=== PATIENT | male | born 1960 | race Caucasian/White ===

== ENCOUNTER → 2023-04-03 | Outpatient (REF) | payer BC | LOC: M LAB REF 15:10 | PROVIDERS: ATTEND Podiatrist | DX: L03.032 Cellulitis of left toe (principal) ==

== ENCOUNTER 2023-07-21 12:30 | Day surgery (SDC) | payer BC ==
[~2023-07-21] VITALS: Ht 180.3 cm; Wt 100.2 kg
[~2023-07-21 12:30] MED LIST: ATEN50TA2 PO; ECOT81TA5 PO; ELIQ5TAB PO; FOLI1TAB11 PO; GLIM1TAB4 PO; GLIP10TA18 PO; LEXA1TAB2 PO; LISI10TA24 PO; METH2.5T48 PO; REPA420I2; SEMA0.257 SQ; VITA100093 PO
[2023-07-21] MEDS ORDERED: ceFAZolin SOD 2 GM in IV 1 EA IV ONE (13:20)
[2023-07-21] MEDS ORDERED: LR 1,000 ML IV SCH (13:20)
[2023-07-21] MEDS ORDERED: LIDOCAINE 2% 100MG/5ML SDV (FOR ANES.) As Ordered ONE (14:28)
[2023-07-21] MEDS ORDERED: KETOROLAC 60MG 2ML VIAL As Ordered ONE (14:28)
[2023-07-21] MEDS ORDERED: propofoL 200 MG/20 ML VIAL As Ordered ONE (14:28)
[2023-07-21] MEDS ORDERED: fentaNYL 100 MCG/2 ML INJECTION As Ordered ONE (14:29)
[2023-07-21] MEDS ORDERED: MIDAZOLAM INJ 2MG/2ML VIAL As Ordered ONE (14:29)
[2023-07-21] MEDS ORDERED: dexmedeTOMIDine (4MCG/ML)200MCG/50ML BTL (PRECEDEX) As Ordered ONE ×3 (15:06→15:13)
[2023-07-21] MEDS ORDERED: ROPIvacaine 0.5% 30ML VIAL As Ordered ONE (15:11)
[2023-07-21] MEDS ORDERED: GENTAMICIN SULF 80MG/2ML VIAL As Ordered ONE (15:20)
[2023-07-21 16:20] VITALS: BP 128/70; TEMP 97.7; O2SAT 98
== END 2023-07-21 16:36 | disposition home or self-care (01) ==
LOC: M SDC 12:30
PROVIDERS: ATTEND Podiatrist
DX: S93.124A Dislocation of metatarsophalangeal joint of right lesser toe(s), initial encounter (principal); I25.10 Atherosclerotic heart disease of native coronary artery without angina pectoris; I10 Essential (primary) hypertension; I25.2 Old myocardial infarction; E78.00 Pure hypercholesterolemia, unspecified; G47.33 Obstructive sleep apnea (adult) (pediatric); Z79.899 Other long term (current) drug therapy; F17.290 Nicotine dependence, other tobacco product, uncomplicated; Z79.84 Long term (current) use of oral hypoglycemic drugs; Z79.82 Long term (current) use of aspirin; Z95.5 Presence of coronary angioplasty implant and graft
CPT/HCPCS: 28820; 73630; 76000; 87070; 87075; 87077; 87186; 87205; 88300; J0690; J1580; J1885; J2250; J2795; J3010

== ENCOUNTER → 2023-12-27 | Outpatient (REF) | payer MEDICARE, BC | LOC: M LAB REF 16:26 | PROVIDERS: ATTEND Podiatrist | DX: L03.122 Acute lymphangitis of left axilla (principal) ==

== ENCOUNTER → 2024-01-22 | Outpatient (REF) | payer MEDICARE, BC | LOC: M LAB REF 16:15 | PROVIDERS: ATTEND Podiatrist | DX: E11.621 Type 2 diabetes mellitus with foot ulcer (principal); L97.529 Non-pressure chronic ulcer of other part of left foot with unspecified severity ==

== ENCOUNTER → 2024-03-19 | Outpatient (REF) | payer MEDICARE, BC ==
[~2024-03-19] MED LIST changes: -GLIM1TAB4 PO; +GLIM1TAB84 PO
== END ==
LOC: M LAB REF 19:37
PROVIDERS: ATTEND Podiatrist
DX: L03.032 Cellulitis of left toe (principal)

== ENCOUNTER 2024-06-19 14:55 | Day surgery (SDC) | payer MEDICARE, BC ==
[~2024-06-19] VITALS: Ht 177.8 cm; Wt 94.3 kg
[~2024-06-19 14:55] MED LIST changes: +BUPR-71 PO; +MINO100C4 PO
[2024-06-19] MEDS ORDERED: LR 1,000 ML IV SCH (15:40)
[2024-06-19] MEDS ORDERED: MIDAZOLAM INJ 2MG/2ML VIAL As Ordered ONE (16:23)
[2024-06-19] MEDS ORDERED: fentaNYL 100 MCG/2 ML INJECTION As Ordered ONE (16:24)
[2024-06-19] MEDS ORDERED: propofoL 200 MG/20 ML VIAL As Ordered ONE (16:26)
[2024-06-19] MEDS ORDERED: propofoL 500 MG/50 ML VIAL As Ordered ONE (16:27)
[2024-06-19] MEDS ORDERED: LIDOCAINE 2% 100MG/5ML SDV (FOR ANES.) As Ordered ONE (16:30)
[2024-06-19] MEDS ORDERED: ACETAMINOPHEN 1000MG 100ML IV BAG As Ordered ONE (16:35)
[2024-06-19] MEDS: ceFAZolin SOD 2 GM in IV 1 EA IV ONE (17:12)
[2024-06-19] MEDS: LIDOCAINE 2% MDV 20ML VIAL As Ordered ONE (17:19)
[2024-06-19] MEDS ORDERED: PHENYLephrine 500MCG 5ML (100MCG/ML) SYRINGE As Ordered ONE (17:23)
[2024-06-19] MEDS: TOBRAMYCIN SULF 1.2GM VIAL As Ordered ONE (17:40)
[2024-06-19] MEDS: GENTAMICIN SULF 80MG/2ML VIAL As Ordered ONE (18:00)
[2024-06-19 18:52] VITALS: BP 104/59; TEMP 96.8; O2SAT 99
== END 2024-06-19 18:59 | disposition home or self-care (01) ==
LOC: M SDC 14:55
PROVIDERS: ATTEND Podiatrist
DX: E11.621 Type 2 diabetes mellitus with foot ulcer (principal); E11.69 Type 2 diabetes mellitus with other specified complication; M86.9 Osteomyelitis, unspecified; L97.429 Non-pressure chronic ulcer of left heel and midfoot with unspecified severity; I10 Essential (primary) hypertension; E11.40 Type 2 diabetes mellitus with diabetic neuropathy, unspecified; E11.51 Type 2 diabetes mellitus with diabetic peripheral angiopathy without gangrene; E78.00 Pure hypercholesterolemia, unspecified; G47.30 Sleep apnea, unspecified; M06.9 Rheumatoid arthritis, unspecified; Z86.718 Personal history of other venous thrombosis and embolism; F17.290 Nicotine dependence, other tobacco product, uncomplicated; Z79.01 Long term (current) use of anticoagulants; Z79.899 Other long term (current) drug therapy; Z79.82 Long term (current) use of aspirin; Z79.84 Long term (current) use of oral hypoglycemic drugs; Z79.85 Long-term (current) use of injectable non-insulin antidiabetic drugs; K21.9 Gastro-esophageal reflux disease without esophagitis; Z88.8 Allergy status to other drugs, medicaments and biological substances; Z91.030 Bee allergy status; Z95.5 Presence of coronary angioplasty implant and graft
CPT/HCPCS: 11981; 28292; 73630; 87070; 87075; 87077; 87186; 87205; C1713; J0131; J0665; J0690; J1580; J2250; J2371; J3010; J3260

== ENCOUNTER → 2024-07-31 | Outpatient (REF) | payer MEDICARE, BC | LOC: M LAB REF 16:32 | PROVIDERS: ATTEND Podiatrist | DX: L03.129 Acute lymphangitis of unspecified part of limb (principal) ==

== ENCOUNTER 2024-08-12 10:07 | Inpatient (IN) | payer MEDICARE, BC ==
[~2024-08-12] VITALS: Ht 180.3 cm; Wt 90.2 kg
[2024-08-12] MEDS ORDERED: REPA140I2 SC (11:13)
[2024-08-12] MEDS ORDERED: VITA100018 PO (11:13)
[2024-08-12] MEDS ORDERED: VITA200016 PO (11:13)
[2024-08-12] MEDS ORDERED: PROBCAP14 PO (11:13)
[2024-08-12] MEDS ORDERED: LEXA1TAB PO (11:13)
[2024-08-12] MEDS ORDERED: CEPH500C PO (11:13)
[2024-08-12] MEDS ORDERED: HYDR-3363 PO (11:13)
[2024-08-12] MEDS ORDERED: HOME MED LIST COMPLETE! XX SCH (11:15)
[2024-08-12 11:18] LABS: BASO # 0.1 10^3/uL (0.0-0.2); BASO % 0.3 % (0.0-1.0); EOS # 0.2 10^3/uL (0.0-0.5); EOS % 1.2 % (0.0-3.0); HEMATOCRIT 33.5 % (42.0-52.0); HEMOGLOBIN 11.6 g/dl (13.5-17.5); LYMPH # 1.4 10^3/uL (1.5-5.0); LYMPH % 8.8 % (24.0-44.0); MEAN CORPUSCULAR HEMOGLOBIN 30.6 pg (27.0-33.0); MEAN CORPUSCULAR HGB CONC 34.6 g/dl (32.0-36.5); MEAN CORPUSCULAR VOLUME 88.4 fl (80.0-96.0); MONO # 1.4 10^3/uL (0.0-0.8); NEUTROPHILS # 12.3 10^3/uL (1.5-8.5); NEUTROPHILS % 79.7 % (36.0-66.0); PLATELET COUNT, AUTOMATED 478 10^3/uL (150-450); RED BLOOD COUNT 3.79 10^6/uL (4.30-6.10); WHITE BLOOD COUNT 15.4 10^3/uL (4.0-10.0)
[2024-08-12] MEDS: MORPHINE 4 MG/ML 1ML VIAL IV PRN (11:30)
[2024-08-12 11:40] LABS: ERYTHROCYTE SEDIMENTATION RATE 115 mm/hr (0-20)
[2024-08-12 13:06] LABS: ALBUMIN 2.4 G/DL (3.2-5.2); ALKALINE PHOSPHATASE 150 U/L (40-129); ALT/SGPT 50 U/L (7.0-40); AST/SGOT 25 U/L (<34); BILIRUBIN,DIRECT 0.2 MG/DL (<0.4); BILIRUBIN,TOTAL 0.4 MG/DL (0.3-1.2); BLOOD UREA NITROGEN 25 MG/DL (9-23); CALCIUM LEVEL 9.3 MG/DL (8.3-10.6); CARBON DIOXIDE LEVEL 22 MMOL/L (20-31); CHLORIDE LEVEL 101 MMOL/L (98-107); CREATININE FOR GFR 0.87 MG/DL (0.70-1.30); GLOMERULAR FILTRATION RATE > 60.0 (>49); GLUCOSE, FASTING 161 MG/DL (74-106); POTASSIUM SERUM 4.8 MMOL/L (3.5-5.1); PROCALCITONIN 0.15 ng/ml; SODIUM LEVEL 128 MMOL/L (136-145); TOTAL PROTEIN 7.3 G/DL (5.7-8.2)
[2024-08-12] MEDS ORDERED: DEXTROSE 50% 50ML SYRINGE IV PRN (13:55)
[2024-08-12] MEDS ORDERED: GLUCOSE 4 GM CHEW PO PRN (13:55)
[2024-08-12] MEDS ORDERED: GLUCAGON INJ 1MG VIAL SC PRN (13:55)
[2024-08-12] MEDS ORDERED: VANCOMYCIN/WATER FOR INJ 1,000 MG in IV 1 EA IV SCH (14:10)
[2024-08-12] MEDS ORDERED: PIPERACILLIN/TAZOBACTAM SOD 4.5 GM in DEXTROSE 5% (D5W) ADV/MINI-BAG 50 ML IV SCH (14:15)
[2024-08-12] MEDS: NS 1,000 ML IV ONE (14:49)
[2024-08-12 15:06] VITALS: BP 135/74; TEMP 99.5; O2SAT 99
[2024-08-12] MEDS: ACETAMINOPHEN 650MG SUPP PR ONE (15:36)
[2024-08-12] MEDS: PIPERACILLIN/TAZOBACTAM SOD 4.5 GM in DEXTROSE 5% (D5W) ADV/MINI-BAG 50 ML IV SCH (16:02)
[2024-08-12] MEDS ORDERED: LIDOCAINE 2% 100MG/5ML SDV (FOR ANES.) As Ordered ONE (16:32)
[2024-08-12] MEDS ORDERED: KETOROLAC 60MG 2ML VIAL As Ordered ONE (16:32)
[2024-08-12] MEDS ORDERED: propofoL 200 MG/20 ML VIAL As Ordered ONE (16:32)
[2024-08-12] MEDS ORDERED: ONDANSETRON 4MG 2ML VIAL As Ordered ONE (16:32)
[2024-08-12] MEDS ORDERED: INSULIN LISPRO (NovoLOG) PER UNIT SC SCH ×2 (17:30→21:00)
[2024-08-12] MEDS ORDERED: fentaNYL 100 MCG/2 ML INJECTION As Ordered ONE (18:00)
[2024-08-12] MEDS ORDERED: MIDAZOLAM INJ 2MG/2ML VIAL As Ordered ONE (18:00)
[2024-08-12] MEDS: LIDOCAINE 2% MDV 20ML VIAL As Ordered ONE (18:39)
[2024-08-12] MEDS: VANCOMYCIN 500MG/10ML VIAL As Ordered ONE (19:07)
[2024-08-12] MEDS: VANCOMYCIN 1000MG/20ML VIAL As Ordered ONE (19:07)
[2024-08-12] MEDS ORDERED: fentaNYL 100 MCG/2 ML INJECTION IV PRN (19:45)
[2024-08-12] MEDS ORDERED: ONDANSETRON 4MG 2ML VIAL IV PRN (19:45)
[2024-08-12] MEDS ORDERED: oxyCODONE 5MG TAB PO PRN (19:45)
[2024-08-12] MEDS: LR 1,000 ML IV SCH (19:45)
[2024-08-12] MEDS ORDERED: HYDROMORPHONE HCL 0.5 MG/ 0.5 ML SYRINGE IV PRN (19:45)
[2024-08-12 20:22] VITALS: BP 104/63; TEMP 96; O2SAT 97
[2024-08-12] MEDS: VANCOMYCIN 2,000 MG/400 ML IV BAG *LOAD IV ONE ×2 (20:50→21:07)
[2024-08-12 20:52] VITALS: BP 100/56; TEMP 97; O2SAT 94
[2024-08-12] MEDS: D5W/0.45% SODIUM CHLORIDE 1,000 ML IV SCH (21:02)
[2024-08-12 21:22] VITALS: BP 95/54; TEMP 96.9; O2SAT 93
[2024-08-12 22:22] VITALS: BP 110/68; TEMP 97.1; O2SAT 96
[2024-08-12 23:22] VITALS: BP 109/68; TEMP 96.9; O2SAT 91
[2024-08-13] VITALS (8 sets, daily range): BP systolic 103–136; BP diastolic 57–73; TEMP 96.8–100.5; O2SAT 92–97
[2024-08-13 06:43] LABS: VANCOMYCIN LEVEL TROUGH 20.6 UG/ML (10.0-20.0)
[2024-08-13] MEDS ORDERED: VANCOMYCIN 1,250 MG/250 ML IV BAG IV SCH (08:00)
[2024-08-13 08:42] LABS: CALCIUM LEVEL 8.5 MG/DL (8.3-10.6); CREATININE FOR GFR 1.37 MG/DL (0.70-1.30); GLOMERULAR FILTRATION RATE 56.2 (>49); POTASSIUM SERUM 4.7 MMOL/L (3.5-5.1)
[2024-08-13] MEDS: VANCOMYCIN 750MG/150 ML IV BAG IV SCH (10:00)
[2024-08-13] MEDS: ONDANSETRON 4MG 2ML VIAL IV PRN (11:22)
[2024-08-13] MEDS: NS 1,000 ML IV ONE (11:23)
[2024-08-13] MEDS ORDERED: MORPHINE 2 MG/ML 1ML VIAL IV PRN (12:45)
[2024-08-13] MEDS: ACETAMINOPHEN 325 MG TAB PO PRN (13:10)
[2024-08-13] MEDS: KETOROLAC 30 MG/ML 1ML VIAL IV SCH (15:33)
[2024-08-13] MEDS: buPROPion **SR TABLET** (ZYBAN) 150MG PO SCH (21:12)
[2024-08-13] MEDS: APIXABAN 5 MG TAB (ELIQUIS) PO SCH (21:14)
[2024-08-13] MEDS: ESCITALOPRAM OXALATE 10 MG TAB (LEXAPRO) PO SCH (21:14)
[2024-08-14] VITALS (7 sets, daily range): BP systolic 126–145; BP diastolic 63–75; TEMP 97.5–99.7; O2SAT 95–98
[2024-08-14] MEDS: PROMETHAZINE 25 MG TAB PO ONE (01:17)
[2024-08-14 01:50] LABS: BLOOD UREA NITROGEN 22 MG/DL (9-23); CALCIUM LEVEL 8.3 MG/DL (8.3-10.6); CARBON DIOXIDE LEVEL 21 MMOL/L (20-31); CHLORIDE LEVEL 105 MMOL/L (98-107); CREATININE FOR GFR 1.14 MG/DL (0.70-1.30); GLOMERULAR FILTRATION RATE > 60.0 (>49); GLUCOSE, FASTING 233 MG/DL (74-106); MAGNESIUM LEVEL 1.3 MG/DL (1.8-2.4); POTASSIUM SERUM 4.2 MMOL/L (3.5-5.1); SODIUM LEVEL 132 MMOL/L (136-145)
[2024-08-14] MEDS: MAG SULF 1GM/100ML (MAG RUN) 1 GM in IV 1 EA IV SCH (03:37)
[2024-08-14] MEDS: atenoloL 50 MG TAB PO SCH (09:53)
[2024-08-14] MEDS: INSULIN LISPRO (NovoLOG) PER UNIT SC SCH ×2 (10:00→20:43)
[2024-08-14 10:16] LABS: BASO % 0.2 % (0.0-1.0); EOS # 0.1 10^3/uL (0.0-0.5); EOS % 0.7 % (0.0-3.0); HEMATOCRIT 30.4 % (42.0-52.0); HEMOGLOBIN 10.4 g/dl (13.5-17.5); LYMPH # 1.1 10^3/uL (1.5-5.0); LYMPH % 8.6 % (24.0-44.0); MEAN CORPUSCULAR HEMOGLOBIN 29.6 pg (27.0-33.0); MEAN CORPUSCULAR HGB CONC 34.2 g/dl (32.0-36.5); MEAN CORPUSCULAR VOLUME 86.6 fl (80.0-96.0); MONO % 7.6 % (2.0-8.0); NEUTROPHILS # 10.8 10^3/uL (1.5-8.5); NEUTROPHILS % 82.1 % (36.0-66.0); PLATELET COUNT, AUTOMATED 396 10^3/uL (150-450); RED BLOOD COUNT 3.51 10^6/uL (4.30-6.10); WHITE BLOOD COUNT 13.1 10^3/uL (4.0-10.0)
[2024-08-14] MEDS: PROMETHAZINE 25MG/ML 1ML VIAL IV ONE (12:00)
[2024-08-14] MEDS: PERCOCET 5MG/325MG TAB PO PRN (12:59)
[2024-08-15 04:20] VITALS: BP 134/72; TEMP 98.8; O2SAT 97
[2024-08-15] MEDS: MORPHINE 2 MG/ML 1ML VIAL IV PRN (06:11)
[2024-08-15 06:24] LABS: BASO % 0.3 % (0.0-1.0); EOS # 0.1 10^3/uL (0.0-0.5); EOS % 1.2 % (0.0-3.0); HEMATOCRIT 30.3 % (42.0-52.0); HEMOGLOBIN 10.2 g/dl (13.5-17.5); LYMPH # 1.2 10^3/uL (1.5-5.0); LYMPH % 10.7 % (24.0-44.0); MEAN CORPUSCULAR HEMOGLOBIN 29.4 pg (27.0-33.0); MEAN CORPUSCULAR HGB CONC 33.7 g/dl (32.0-36.5); MEAN CORPUSCULAR VOLUME 87.3 fl (80.0-96.0); MONO % 8.9 % (2.0-8.0); NEUTROPHILS % 78.2 % (36.0-66.0); PLATELET COUNT, AUTOMATED 392 10^3/uL (150-450); RED BLOOD COUNT 3.47 10^6/uL (4.30-6.10); WHITE BLOOD COUNT 11.5 10^3/uL (4.0-10.0)
[2024-08-15 06:50] LABS: BLOOD UREA NITROGEN 11 MG/DL (9-23); CALCIUM LEVEL 8.9 MG/DL (8.3-10.6); CARBON DIOXIDE LEVEL 23 MMOL/L (20-31); CHLORIDE LEVEL 102 MMOL/L (98-107); CREATININE FOR GFR 0.85 MG/DL (0.70-1.30); GLOMERULAR FILTRATION RATE > 60.0 (>49); GLUCOSE, FASTING 176 MG/DL (74-106); MAGNESIUM LEVEL 1.4 MG/DL (1.8-2.4); POTASSIUM SERUM 4.7 MMOL/L (3.5-5.1); SODIUM LEVEL 131 MMOL/L (136-145)
[2024-08-15] MEDS: MAG SULF 1GM/100ML (MAG RUN) 1 GM in IV 1 EA IV SCH (11:42)
[2024-08-15] MEDS: MAGNESIUM OXIDE 400MG TAB (MAG-OX) PO SCH (11:48)
[2024-08-15 12:00] VITALS: BP 137/60; TEMP 97.7; O2SAT 96
[2024-08-15] MEDS ORDERED: LINE1TAB6 PO (16:50)
[2024-08-15] MEDS: LINEZOLID 600MG TABLET (ZYVOX) PO SCH (20:01)
[2024-08-15 21:00] VITALS: BP 142/77; TEMP 98.1; O2SAT 94
[2024-08-16] MEDS: PERCOCET 5MG/325MG TAB PO PRN (01:32)
[2024-08-16 04:40] VITALS: BP 137/75; TEMP 97.5; O2SAT 97
[2024-08-16 05:52] LABS: BLOOD UREA NITROGEN 10 MG/DL (9-23); CALCIUM LEVEL 8.8 MG/DL (8.3-10.6); CARBON DIOXIDE LEVEL 22 MMOL/L (20-31); CHLORIDE LEVEL 104 MMOL/L (98-107); CREATININE FOR GFR 0.81 MG/DL (0.70-1.30); GLOMERULAR FILTRATION RATE > 60.0 (>49); GLUCOSE, FASTING 173 MG/DL (74-106); MAGNESIUM LEVEL 1.4 MG/DL (1.8-2.4); POTASSIUM SERUM 4.9 MMOL/L (3.5-5.1); SODIUM LEVEL 132 MMOL/L (136-145)
[2024-08-16] MEDS: MAG SULF 1GM/100ML (MAG RUN) 1 GM in IV 1 EA IV SCH (06:45)
[2024-08-16 08:00] VITALS: BP 134/72; TEMP 97
[2024-08-16] MEDS: MAGNESIUM OXIDE 400MG TAB (MAG-OX) PO SCH (10:28)
[2024-08-16] MEDS ORDERED: MAGN400T2 PO (10:32)
[2024-08-16] MEDS ORDERED: PERCOCET PO (10:32)
[2024-08-16 10:45] VITALS: BP 160/88
[2024-08-16 11:30] VITALS: BP 156/78; TEMP 99
[2024-08-16 12:51] VITALS: O2SAT 96
== END 2024-08-16 16:20 | disposition home health service (06) | DRG 617 ==
LOC: M ED 10:07 → M ED INP 13:49 → EEVIPCON 13:49 → M MSPAV 15:08
PROVIDERS: ADMIT General Practice; ATTEND Student in an Organized Health Care Education/Training Program
PROC: 0Y6N0Z5 Detachment at Left Foot, Complete 2nd Ray, Open Approach (ICD-10-PCS; principal; 2024-08-12 17:00)
DX: E11.69 Type 2 diabetes mellitus with other specified complication (principal); E11.52 Type 2 diabetes mellitus with diabetic peripheral angiopathy with gangrene; M86.672 Other chronic osteomyelitis, left ankle and foot; E87.1 Hypo-osmolality and hyponatremia; I10 Essential (primary) hypertension; E78.00 Pure hypercholesterolemia, unspecified; E78.5 Hyperlipidemia, unspecified; I25.10 Atherosclerotic heart disease of native coronary artery without angina pectoris; N17.9 Acute kidney failure, unspecified; E11.40 Type 2 diabetes mellitus with diabetic neuropathy, unspecified; E11.51 Type 2 diabetes mellitus with diabetic peripheral angiopathy without gangrene; I70.201 Unspecified atherosclerosis of native arteries of extremities, right leg; F17.210 Nicotine dependence, cigarettes, uncomplicated

== ENCOUNTER → 2024-09-03 | Outpatient (REF) | payer MEDICARE, BC ==
[~2024-09-03] MED LIST changes: +CEPH500C PO; +HYDR-3363 PO; +LEXA1TAB PO; +LINE1TAB6 PO; +MAGN400T2 PO; +PERCOCET PO; +PROBCAP14 PO; +REPA140I2 SC; +VITA100018 PO; +VITA200016 PO
== END ==
LOC: M LAB REF 10:41
PROVIDERS: ATTEND Podiatrist
DX: M86.9 Osteomyelitis, unspecified (principal)

== ENCOUNTER → 2024-09-11 | Outpatient (POV) | payer MEDICARE, BC ==
[~2024-09-11] VITALS: Ht 177.8 cm; Wt 90.9 kg
[2024-09-11 16:05] VITALS: BP 102/57; O2SAT 100
== END ==
LOC: M IRPOV 15:33
PROVIDERS: ATTEND Radiology Diagnostic Radiology
DX: I70.223 Atherosclerosis of native arteries of extremities with rest pain, bilateral legs (principal); M86.8X7 Other osteomyelitis, ankle and foot; B95.2 Enterococcus as the cause of diseases classified elsewhere; B95.61 Methicillin susceptible Staphylococcus aureus infection as the cause of diseases classified elsewhere; B95.62 Methicillin resistant Staphylococcus aureus infection as the cause of diseases classified elsewhere; F17.290 Nicotine dependence, other tobacco product, uncomplicated; G25.81 Restless legs syndrome; Z79.01 Long term (current) use of anticoagulants; Z79.82 Long term (current) use of aspirin; Z82.3 Family history of stroke; Z82.49 Family history of ischemic heart disease and other diseases of the circulatory system; Z83.3 Family history of diabetes mellitus; Z86.718 Personal history of other venous thrombosis and embolism; Z89.422 Acquired absence of other left toe(s); Z96.652 Presence of left artificial knee joint; Z98.1 Arthrodesis status

== ENCOUNTER → 2024-10-14 | Outpatient (REF) | payer MEDICARE, BC | LOC: M LAB REF 16:16 | PROVIDERS: ATTEND Podiatrist | DX: L03.129 Acute lymphangitis of unspecified part of limb (principal) ==

== ENCOUNTER → 2024-10-31 | Outpatient (CLI) | payer MEDICARE, BC ==
[~2024-10-31] MED LIST changes: +ACETAMINOPHEN 325 MG TAB PO PRN; +HEPARIN 1,000UNITS/ML 10ML VIAL (FOR RADIOLOGY & DIALYSIS ONLY) As Ordered ONE; +ISOVUE-300 61% 100ML VIAL As Ordered ONE; +KETAMINE HCL 200MG/20ML VIAL As Ordered ONE; +LIDOCAINE 1% MDV 20ML VIAL As Ordered ONE; +LIDOCAINE 2% 100MG/5ML SDV (FOR ANES.) As Ordered ONE; +MIDAZOLAM INJ 2MG/2ML VIAL As Ordered ONE; +NS (Normal Saline) 0.9% 1,000 ML IV SCH; +ONDANSETRON 4MG 2ML VIAL IV PRN; +PERCOCET 5MG/325MG TAB As Ordered ONE; +fentaNYL 100 MCG/2 ML INJECTION As Ordered ONE; +fentaNYL 100 MCG/2 ML INJECTION IV PRN; +propofoL 200 MG/20 ML VIAL As Ordered ONE
[2024-10-31 10:58] VITALS: TEMP 99.2
[2024-10-31] MEDS: PERCOCET 5MG/325MG TAB PO PRN (15:11)
[2024-10-31 16:00] VITALS: BP 165/84; O2SAT 97
== END ==
LOC: M IRPRO 10:03
PROVIDERS: ATTEND Radiology Diagnostic Radiology
DX: I70.202 Unspecified atherosclerosis of native arteries of extremities, left leg (principal)
CPT/HCPCS: 37227; C1714; C1760; C1874; C1894; J2250; J3010; Q9967

== ENCOUNTER → 2024-11-21 | Outpatient (CLI) | payer MEDICARE, BC ==
[~2024-11-21] MED LIST changes: -ACETAMINOPHEN 325 MG TAB PO PRN; +GLIP-320 PO; -GLIP10TA18 PO; -HEPARIN 1,000UNITS/ML 10ML VIAL (FOR RADIOLOGY & DIALYSIS ONLY) As Ordered ONE; -ISOVUE-300 61% 100ML VIAL As Ordered ONE; -KETAMINE HCL 200MG/20ML VIAL As Ordered ONE; -LIDOCAINE 1% MDV 20ML VIAL As Ordered ONE; -LIDOCAINE 2% 100MG/5ML SDV (FOR ANES.) As Ordered ONE; -MIDAZOLAM INJ 2MG/2ML VIAL As Ordered ONE; -NS (Normal Saline) 0.9% 1,000 ML IV SCH; -ONDANSETRON 4MG 2ML VIAL IV PRN; -PERCOCET 5MG/325MG TAB As Ordered ONE; -fentaNYL 100 MCG/2 ML INJECTION As Ordered ONE; -fentaNYL 100 MCG/2 ML INJECTION IV PRN; -propofoL 200 MG/20 ML VIAL As Ordered ONE
[2024-11-21 15:13] LABS: BASO % 0.3 % (0.0-1.0); EOS # 0.2 10^3/uL (0.0-0.5); EOS % 1.5 % (0.0-3.0); HEMATOCRIT 28.1 % (42.0-52.0); HEMOGLOBIN 8.9 g/dl (13.5-17.5); MEAN CORPUSCULAR HEMOGLOBIN 27.9 pg (27.0-33.0); MEAN CORPUSCULAR HGB CONC 31.7 g/dl (32.0-36.5); MEAN CORPUSCULAR VOLUME 88.1 fl (80.0-96.0); MONO # 0.9 10^3/uL (0.0-0.8); MONO % 9.5 % (2.0-8.0); NEUTROPHILS # 6.8 10^3/uL (1.5-8.5); NEUTROPHILS % 68.4 % (36.0-66.0); PLATELET COUNT, AUTOMATED 380 10^3/uL (150-450); RED BLOOD COUNT 3.19 10^6/uL (4.30-6.10); WHITE BLOOD COUNT 9.9 10^3/uL (4.0-10.0)
[2024-11-21 15:15] LABS: C REACTIVE PROTEIN QUANTITATIV 9.14 MG/DL (<1.0)
[2024-11-21 15:16] LABS: BLOOD UREA NITROGEN 15 MG/DL (9-23); CALCIUM LEVEL 8.6 MG/DL (8.3-10.6); CARBON DIOXIDE LEVEL 30 MMOL/L (20-31); CHLORIDE LEVEL 96 MMOL/L (98-107); CREATININE FOR GFR 0.97 MG/DL (0.70-1.30); GLOMERULAR FILTRATION RATE > 60.0 (>49); GLUCOSE, FASTING 295 MG/DL (74-106); POTASSIUM SERUM 4.1 MMOL/L (3.5-5.1); SODIUM LEVEL 131 MMOL/L (136-145)
[2024-11-21 15:18] LABS: ERYTHROCYTE SEDIMENTATION RATE 61 mm/hr (0-20)
== END ==
LOC: M PLALAB 13:01
PROVIDERS: ATTEND Internal Medicine Infectious Disease
DX: M86.172 Other acute osteomyelitis, left ankle and foot (principal)

== ENCOUNTER → 2024-12-13 | Outpatient (CLI) | payer MEDICARE, BC ==
[~2024-12-13] VITALS: Ht 177.8 cm; Wt 89.0 kg
[~2024-12-13] MED LIST changes: +ACETAMINOPHEN 325 MG TAB PO PRN; +HEPARIN SOD (PORCINE) 5000UNITS/ML 1ML VIAL/SYRINGE IV STA; +ISOVUE-300 61% 100ML VIAL As Ordered ONE; +KETAMINE HCL 200MG/20ML VIAL As Ordered ONE; +LIDOCAINE 2% 100MG/5ML SDV (FOR ANES.) As Ordered ONE; +MIDAZOLAM INJ 2MG/2ML VIAL As Ordered ONE; +NITROGLYCERIN IN D5W 25MG/250ML (100MCG/ML) As Ordered ONE; +NS (Normal Saline) 0.9% 1,000 ML IV SCH; +ONDANSETRON 4MG 2ML VIAL As Ordered ONE; +ONDANSETRON 4MG 2ML VIAL IV PRN; +PERCOCET 5MG/325MG TAB PO PRN; +fentaNYL 100 MCG/2 ML INJECTION As Ordered ONE; +propofoL 200 MG/20 ML VIAL As Ordered ONE
[2024-12-13 07:30] VITALS: TEMP 97.9
[2024-12-13] MEDS: NS (Normal Saline) 0.9% 1,000 ML IV SCH (07:40)
[2024-12-13 08:06] LABS: INR 1.07; PROTHROMBIN TIME 14.2 SECONDS (12.5-14.5)
[2024-12-13] MEDS: HEPARIN 1,000UNITS/ML 10ML VIAL (FOR RADIOLOGY & DIALYSIS ONLY) IV PRN (09:34)
[2024-12-13] MEDS: LIDOCAINE 1% MDV 20ML VIAL SC ONE (11:02)
[2024-12-13 12:45] VITALS: BP 162/80; O2SAT 97
== END ==
LOC: M IRPRO 07:22
PROVIDERS: ATTEND Radiology Diagnostic Radiology
DX: I74.3 Embolism and thrombosis of arteries of the lower extremities (principal)
CPT/HCPCS: 37224; 85610; C1725; C1760; C1769; C1887; C1894; C2623; J2250; J2405; J3010; Q9967

== ENCOUNTER → 2025-04-29 | Outpatient (CLI) | payer MEDICARE, BC ==
[~2025-04-29] MED LIST changes: -ACETAMINOPHEN 325 MG TAB PO PRN; -HEPARIN SOD (PORCINE) 5000UNITS/ML 1ML VIAL/SYRINGE IV STA; -ISOVUE-300 61% 100ML VIAL As Ordered ONE; -KETAMINE HCL 200MG/20ML VIAL As Ordered ONE; -LIDOCAINE 2% 100MG/5ML SDV (FOR ANES.) As Ordered ONE; -MIDAZOLAM INJ 2MG/2ML VIAL As Ordered ONE; -NITROGLYCERIN IN D5W 25MG/250ML (100MCG/ML) As Ordered ONE; -NS (Normal Saline) 0.9% 1,000 ML IV SCH; -ONDANSETRON 4MG 2ML VIAL As Ordered ONE; -ONDANSETRON 4MG 2ML VIAL IV PRN; -PERCOCET 5MG/325MG TAB PO PRN; -fentaNYL 100 MCG/2 ML INJECTION As Ordered ONE; -propofoL 200 MG/20 ML VIAL As Ordered ONE
== END ==
LOC: M RAD 10:57
PROVIDERS: ATTEND Radiology Diagnostic Radiology
DX: I74.3 Embolism and thrombosis of arteries of the lower extremities (principal)

== ENCOUNTER → 2025-05-07 | Outpatient (POV) | payer MEDICARE, BC ==
[~2025-05-07] VITALS: Ht 177.8 cm; Wt 97.7 kg
[~2025-05-07] MED LIST changes: +ESCI5SOL3 PO; +FURO20TA2 PO; +FURO40TA2 PO; +IRON65TA2 PO; +LOSA25TA13 PO; +LOSA50TA28 PO; +METO1TAB7 PO; +METO200T15 PO; +PANT20TA6 PO
[2025-05-07 09:46] VITALS: BP 150/92; O2SAT 99
== END ==
LOC: EDSTATUS 09:00 → M IRPOV 09:37
PROVIDERS: ATTEND Registered Nurse School
DX: Z48.812 Encounter for surgical aftercare following surgery on the circulatory system (principal); I70.201 Unspecified atherosclerosis of native arteries of extremities, right leg; Z88.8 Allergy status to other drugs, medicaments and biological substances; Z91.030 Bee allergy status

== ENCOUNTER → 2025-05-30 | Outpatient (CLI) | payer MEDICARE, BC ==
[~2025-05-30] VITALS: Ht 177.8 cm; Wt 97.5 kg
[~2025-05-30] MED LIST changes: +ACETAMINOPHEN 325 MG TAB PO PRN; +ASPIRIN 81 MG ENTERIC TABLET PO SCH; +CEPH25SS PO; +CLOP75TA2 PO; +KETAMINE HCL 200 MG/20 ML VIAL As Ordered ONE; +LIDOCAINE 2% 100 MG/5 ML SDV (FOR ANES.) As Ordered ONE; +MIDAZOLAM INJ 2 MG/2 ML VIAL As Ordered ONE; +MIDAZOLAM INJ 2 MG/2 ML VIAL IV PRN; +NS (Normal Saline) 0.9% 1,000 ML IV SCH; +ONDANSETRON 4MG 2ML VIAL IV PRN; +PERCOCET 5MG/325MG TAB PO PRN
[2025-05-30 12:20] VITALS: TEMP 97.4
[2025-05-30] MEDS: ceFAZolin SODIUM 2 GM in DEXTROSE 5% (D5W) ADV/MINI-BAG 50 ML IV ONE (13:43)
[2025-05-30] MEDS: HEPARIN 1,000 UNITS/ML 10 ML VIAL (FOR RADIOLOGY & DIALYSIS ONLY) IV PRN (13:48)
[2025-05-30] MEDS: CLOPIDOGREL 75 MG TAB PO ONE (15:40)
[2025-05-30] MEDS: LIDOCAINE 1% MDV 20 ML VIAL SC SCH (15:49)
[2025-05-30] MEDS: ISOVUE-300 61% 100 ML VIAL IV SCH (15:49)
[2025-05-30] MEDS: NS (Normal Saline) 0.9% 1,000 ML IV SCH (15:49)
[2025-05-30] MEDS: ASPIRIN 81 MG ENTERIC TABLET PO ONE (16:33)
[2025-05-30 17:30] VITALS: BP 174/84; O2SAT 98
== END ==
LOC: M IRPOV 12:15
PROVIDERS: ATTEND Radiology Diagnostic Radiology
DX: T82.898A Other specified complication of vascular prosthetic devices, implants and grafts, initial encounter (principal)
CPT/HCPCS: 37226; 93975; C1760; C1769; C1874; C1884; J0690; J2250; J3010; Q9967

== ENCOUNTER → 2025-07-03 | Outpatient (CLI) | payer MEDICARE, BC ==
[~2025-07-03] MED LIST changes: -ACETAMINOPHEN 325 MG TAB PO PRN; -ASPIRIN 81 MG ENTERIC TABLET PO SCH; +BUPR150T12 PO; -KETAMINE HCL 200 MG/20 ML VIAL As Ordered ONE; -LIDOCAINE 2% 100 MG/5 ML SDV (FOR ANES.) As Ordered ONE; -MIDAZOLAM INJ 2 MG/2 ML VIAL As Ordered ONE; -MIDAZOLAM INJ 2 MG/2 ML VIAL IV PRN; -NS (Normal Saline) 0.9% 1,000 ML IV SCH; -ONDANSETRON 4MG 2ML VIAL IV PRN; -PERCOCET 5MG/325MG TAB PO PRN
== END ==
LOC: M RAD 09:52
PROVIDERS: ATTEND Registered Nurse School
DX: I70.202 Unspecified atherosclerosis of native arteries of extremities, left leg (principal); Z95.820 Peripheral vascular angioplasty status with implants and grafts

== ENCOUNTER → 2025-07-09 | Outpatient (POV) | payer MEDICARE, BC ==
[~2025-07-09] VITALS: Ht 172.7 cm; Wt 97.7 kg
[2025-07-09 10:09] VITALS: BP 168/77; O2SAT 99
== END ==
LOC: M IRPOV 09:36
PROVIDERS: ATTEND Registered Nurse School
DX: Z48.812 Encounter for surgical aftercare following surgery on the circulatory system (principal); Z95.828 Presence of other vascular implants and grafts; I70.245 Atherosclerosis of native arteries of left leg with ulceration of other part of foot; L97.529 Non-pressure chronic ulcer of other part of left foot with unspecified severity; I70.234 Atherosclerosis of native arteries of right leg with ulceration of heel and midfoot; L97.519 Non-pressure chronic ulcer of other part of right foot with unspecified severity; Z79.02 Long term (current) use of antithrombotics/antiplatelets; Z79.82 Long term (current) use of aspirin; Z91.030 Bee allergy status; Z88.8 Allergy status to other drugs, medicaments and biological substances

== ENCOUNTER → 2025-09-08 | Outpatient (CLI) | payer MEDICARE, BC ==
[~2025-09-08] VITALS: Ht 177.8 cm; Wt 106.8 kg
[~2025-09-08] MED LIST changes: +ACETAMINOPHEN 325 MG TAB PO PRN; +DEXTROSE 50% 50 ML SYRINGE IV PRN; +GLUCAGON INJ 1 MG VIAL SC PRN; +GLUCOSE 4 GM CHEW PO PRN; +HEPARIN 1,000 UNITS/ML 10 ML VIAL (FOR RADIOLOGY & DIALYSIS ONLY) IV PRN; +INSULIN LISPRO (NovoLOG) PER UNIT SC PRN; +KETAMINE HCL 200 MG/20 ML VIAL As Ordered ONE; +LIDOCAINE 2% 100 MG/5 ML SDV (FOR ANES.) As Ordered ONE; +MIDAZOLAM INJ 2 MG/2 ML VIAL As Ordered ONE; +MIDAZOLAM INJ 2 MG/2 ML VIAL IV PRN; +ONDANSETRON 4MG/2ML VIAL IV PRN; +dexmedeTOMIDine (4 MCG/ML) 200 MCG/50 ML BTL As Ordered ONE
[2025-09-08 07:10] VITALS: TEMP 97.2
[2025-09-08] MEDS: NS (Normal Saline) 0.9% 1,000 ML IV SCH ×2 (07:10→11:34)
[2025-09-08] MEDS: LR 1,000 ML IV SCH (07:15)
[2025-09-08 08:10] LABS: CALCIUM LEVEL 9.3 MG/DL (8.3-10.6); CARBON DIOXIDE LEVEL 32.0 MMOL/L (20-31); CHLORIDE LEVEL 103.0 MMOL/L (98-107); CREATININE FOR GFR 1.28 MG/DL (0.70-1.30); GLOMERULAR FILTRATION RATE 63.3 (>49); POTASSIUM SERUM 4.3 MMOL/L (3.5-5.1); SODIUM LEVEL 142.0 MMOL/L (136-145)
[2025-09-08] MEDS: ISOVUE-300 61% 100 ML VIAL IV SCH (10:53)
[2025-09-08] MEDS: HEPARIN 1,000 UNITS/ML 10 ML VIAL (FOR RADIOLOGY & DIALYSIS ONLY) IV PRN (10:54)
[2025-09-08] MEDS: NITROGLYCERIN IN D5W 25 MG/250 ML (100 MCG/ML) IV STA (10:58)
[2025-09-08] MEDS: LIDOCAINE 1% MDV 20 ML VIAL SC SCH (10:59)
[2025-09-08] MEDS: PERCOCET 5MG/325MG TAB PO PRN (11:33)
[2025-09-08 13:00] VITALS: BP 125/62; O2SAT 98
== END ==
LOC: M IRPRO 06:47
PROVIDERS: ATTEND Registered Nurse School
DX: I70.201 Unspecified atherosclerosis of native arteries of extremities, right leg (principal); R09.89 Other specified symptoms and signs involving the circulatory and respiratory systems
CPT/HCPCS: 37229; 37233; 37252; 76937; 80048; 93975; C1753; C1874; C1886; J2250; J2305; J2371; J3010; Q9967

== ENCOUNTER → 2025-09-22 | Outpatient (POV) | payer MEDICARE, BC ==
[~2025-09-22] MED LIST changes: -ACETAMINOPHEN 325 MG TAB PO PRN; -DEXTROSE 50% 50 ML SYRINGE IV PRN; -GLUCAGON INJ 1 MG VIAL SC PRN; -GLUCOSE 4 GM CHEW PO PRN; -HEPARIN 1,000 UNITS/ML 10 ML VIAL (FOR RADIOLOGY & DIALYSIS ONLY) IV PRN; -INSULIN LISPRO (NovoLOG) PER UNIT SC PRN; -KETAMINE HCL 200 MG/20 ML VIAL As Ordered ONE; -LIDOCAINE 2% 100 MG/5 ML SDV (FOR ANES.) As Ordered ONE; -MIDAZOLAM INJ 2 MG/2 ML VIAL As Ordered ONE; -MIDAZOLAM INJ 2 MG/2 ML VIAL IV PRN; -ONDANSETRON 4MG/2ML VIAL IV PRN; -dexmedeTOMIDine (4 MCG/ML) 200 MCG/50 ML BTL As Ordered ONE
== END ==
LOC: M IRPOV 10:30
PROVIDERS: ATTEND Registered Nurse School
DX: Z48.812 Encounter for surgical aftercare following surgery on the circulatory system (principal); I73.9 Peripheral vascular disease, unspecified; F17.290 Nicotine dependence, other tobacco product, uncomplicated; Z79.82 Long term (current) use of aspirin; Z79.899 Other long term (current) drug therapy; Z82.49 Family history of ischemic heart disease and other diseases of the circulatory system; Z88.8 Allergy status to other drugs, medicaments and biological substances; Z91.030 Bee allergy status; Z95.828 Presence of other vascular implants and grafts